=== PATIENT | male | born 1970 | race Caucasian/White ===

== ENCOUNTER 2017-02-04 19:16 | Emergency (ER) | payer MEDICAID ==
--- NOTE | 2017-02-04 19:35 | CPEKG ---
Heart Rate: 108 RR Interval: 556 P-R Interval: 132 QRSD Interval: 100 QT Interval: 364 QTC Interval: 488 P [place]: 70 QRS [place]: 80 T Wave [place]: -27 EKG Severity - BORDERLINE ECG - EKG Impression: SINUS TACHYCARDIA EKG Impression: BORDERLINE INFERIOR Q WAVES EKG Impression: BORDERLINE PROLONGED QT INTERVAL Electronically Signed By: Dandre Levy 04-Feb-2017 19:52:01
[2017-02-04] MEDS ORDERED: LORazepam 2 MG/ML INJ IVP ONE (19:52)
[2017-02-04] MEDS ORDERED: NS 1,000 ML IV ONE ×2 (19:52)
--- NOTE | 2017-02-04 19:55 | EDPHY ---
H & P Stated Complaint: Anxiety from using methamphetamine Source: Patient Exam Limitations: No limitations - Personal History Current Tetanus/Diphtheria Vaccine: Yes - Medical/Surgical History Hx Asthma: No Hx Chronic Respiratory Disease: No Hx Diabetes: No Hx Cardiac Disease: No Hx Renal Disease: No Hx Cirrhosis: No Hx Alcoholism: No Hx HIV/AIDS: No Hx Splenectomy or Spleen Trauma: No Other PMH: PTSD, depression - Social History Smoking Status: Light smoker Time Seen by Provider: 02/04/17 19:24 HPI/ROS: CHIEF COMPLAINT: Anxiety after using methamphetamine HISTORY OF PRESENT ILLNESS: The patient presents to the ED with extreme anxiety and restlessness after using amphetamine on a daily basis for the past 4 days. The patient reports he was released from correction on Sunday. He has been using methamphetamine on a daily basis since that time. The patient had been sober during his prior 9 month incarceration. The patient denies taking additional medications. The patient denies any chest pain or shortness of breath. The patient denies suicidal or homicidal ideation. The patient has no additional acute medical complaints. He specifically denies fever, cough, congestion, headache, numbness, weakness or other acute complaints. REVIEW OF SYSTEMS: A comprehensive 10 point review of systems is otherwise negative aside from elements mentioned in the history of present illness. (Dandre Levy) - Physical Exam Exam: General Appearance: Restless, anxious, cooperative Eyes: Pupils equal and round no pallor or injection ENT, Mouth: Mucous membranes moist Respiratory: There are no retractions, lungs are clear to auscultation Cardiovascular: Tachycardic, rate 120 Gastrointestinal: Abdomen is soft and nontender, no masses, bowel sounds normal Neurological: A&O, normal motor function, normal sensory exam, normal cranial nerves Skin: Warm and dry, no rashes Musculoskeletal: Neck is supple nontender Extremities: symmetrical, full range of motion (Dandre Levy) Constitutional: Initial Vital Signs Temperature (C) 36.9 C 02/04/17 19:19 Heart Rate 132 H 02/04/17 19:19 Respiratory Rate 30 H 02/04/17 19:19 Blood Pressure 168/104 H 02/04/17 19:19 O2 Sat (%) 93 02/04/17 19:19 O2 Delivery Mode Room Air O2 (L/minute) 2 Allergies/Adverse Reactions: No Known Allergies Allergy (Verified 05/15/15 19:14) Home Medications: Medication Instructions Recorded AMITRIPTYLINE HCL [Amitriptyline 200 mg PO HS 02/04/17 100 mg] Escitalopram Oxalate [Lexapro] 10 mg PO 02/04/17 Medical Decision Making - Diagnostics EKG Interpretation: EKG: Complete interpretation has been separately recorded in the [facility] archive. Summary impression: Sinus tachycardia, rate 108, nonspecific ST T wave changes noted (Dandre Levy) ED Course/Re-evaluation: The patient had an IV established. He received 2 mg of IV Ativan. The patient was placed on a awake overnight monitor. He received 2 L of normal saline. Screening laboratory studies including a CBC, serum chemistry in total CPK have been ordered. The patient was noted to have a slightly elevated CPK of 2000. Patient was re-evaluated at 10:00 p.m.. He is becoming more agitated in the ED. The patient was given 10 mg of Zyprexa. The patient has been placed on a emergency department detain or secondary to his methamphetamine intoxication. 10:15pm The patient did have a repeat CPK and is trending down, repeat CPKs 1500 after 2 L of normal saline. The patient will be turned over to Dr. Hernandez at shift change. (Dandre Levy) 11:50 p.m.- I received sign-out of this patient at approximately 10:15 p.m.. The patient was sleeping comfortably until about 11:30p when he became more agitated. He required Versed 2 mg IV and now is calm and resting. 6:30 a.m.- The patient eventually awoke and felt better. He did admit to methamphetamine use. [facility] I have given him Tylenol for some foot pain he is experiencing. He is able to eat and drink without difficulty. Vital signs are stable. (Jada Hernandez) Differential Diagnosis: Differential diagnosis considered includes tachycardia, myocardial infarction, anxiety, sympathomimetic toxicity, renal failure, rhabdomyolysis metabolic abnormality (Dandre Levy) - Data Points Laboratory Results: Laboratory Results 02/04/17 20:00 02/04/17 20:00 02/04/17 02/04/17 02/04/17 23:25 21:40 20:00 WBC RBC Hgb Hct MCV MCH MCHC RDW Plt Count MPV Neut % (Auto) Lymph % (Auto) Preston % (Auto) Eos % (Auto) Baso % (Auto) Nucleat RBC Rel Count Absolute Neuts (auto) Absolute Lymphs (auto) Absolute Monos (auto) Absolute Eos (auto) Absolute Basos (auto) Absolute Nucleated RBC Immature Gran % Immature Gran # Sodium 135 mEq/L mEq/L (134-144) Potassium 3.6 mEq/L mEq/L (3.5-5.2) Chloride 97 mEq/L mEq/L (97-110) Carbon Dioxide 22 mEq/l mEq/l (22-31) Anion Gap 16 mEq/L mEq/L (8-16) BUN 11 mg/dL mg/dL (7-23) Creatinine 0.9 mg/dL mg/dL (0.7-1.3) Estimated GFR > 60 Glucose 82 mg/dL mg/dL (70-100) Calcium 8.9 mg/dL mg/dL (8.5-10.4) Creatine Kinase 1539 IU/L H IU/L 2184 IU/L H IU/L (0-224) (0-224) CK-MB (CK-2) Fraction 12.60 ng/mL H ng/mL 14.70 ng/mL H ng/mL (0-3.19) (0-4.55) CK-MB (CK-2) % 0.8 % % 0.7 % % (0.0-4.0) (0.0-4.0) Creatine Kinase Interp NEGATIVE NEGATIVE (NEGATIVE) (NEGATIVE) Urine Opiates Screen NEGATIVE (NEGATIVE) Urine Barbiturates NEGATIVE (NEGATIVE) Ur Phencyclidine Scrn NEGATIVE (NEGATIVE) Ur Amphetamine Screen NEGATIVE (NEGATIVE) U Benzodiazepines Scrn NEGATIVE (NEGATIVE) Urine Cocaine Screen NEGATIVE (NEGATIVE) U Marijuana (THC) Screen NEGATIVE (NEGATIVE) 02/04/17 20:00 WBC 12.22 10^3/uL H 10^3/uL (3.80-9.50) RBC 4.96 10^6/uL 10^6/uL (4.40-6.38) Hgb 14.2 g/dL g/dL (13.7-17.5) Hct 41.2 % % (40.0-51.0) MCV 83.1 fL fL (81.5-99.8) MCH 28.6 pg pg (27.9-34.1) MCHC 34.5 g/dL g/dL (32.4-36.7) RDW 13.2 % % (11.5-15.2) Plt Count 160 10^3/uL 10^3/uL (150-400) MPV 10.9 fL fL (8.7-11.7) Neut % (Auto) 83.8 % H % (39.3-74.2) Lymph % (Auto) 8.1 % L % (15.0-45.0) Preston % (Auto) 7.4 % % (4.5-13.0) Eos % (Auto) 0.1 % L % (0.6-7.6) Baso % (Auto) 0.2 % L % (0.3-1.7) Nucleat RBC Rel Count 0.0 % % (0.0-0.2) Absolute Neuts (auto) 10.23 10^3/uL H 10^3/uL (1.70-6.50) Absolute Lymphs (auto) 0.99 10^3/uL L 10^3/uL (1.00-3.00) Absolute Monos (auto) 0.91 10^3/uL H 10^3/uL (0.30-0.80) Absolute Eos (auto) 0.01 10^3/uL L 10^3/uL (0.03-0.40) Absolute Basos (auto) 0.03 10^3/uL 10^3/uL (0.02-0.10) Absolute Nucleated RBC 0.00 10^3/uL 10^3/uL (0-0.01) Immature Gran % 0.4 % % (0.0-1.1) Immature Gran # 0.05 10^3/uL 10^3/uL (0.00-0.10) Sodium Potassium Chloride Carbon Dioxide Anion Gap BUN Creatinine Estimated GFR Glucose Calcium Creatine Kinase CK-MB (CK-2) Fraction CK-MB (CK-2) % Creatine Kinase Interp Urine Opiates Screen Urine Barbiturates Ur Phencyclidine Scrn Ur Amphetamine Screen U Benzodiazepines Scrn Urine Cocaine Screen U Marijuana (THC) Screen Medications Given: Discontinued Medications Acetaminophen (Tylenol) 650 mg PO EDNOW ONE Stop: 02/05/17 06:14 Last Admin: 02/05/17 06:19 Dose: 650 mg Sodium Chloride (Ns) 1,000 mls @ 0 mls/hr IV EDNOW ONE; Wide Open PRN Reason: Protocol Stop: 02/04/17 19:53 Last Admin: 02/04/17 20:07 Dose: 1,000 mls Sodium Chloride (Ns) 1,000 mls @ 0 mls/hr IV EDNOW ONE; Wide Open PRN Reason: Protocol Stop: 02/04/17 19:53 Last Admin: 02/04/17 20:08 Dose: 1,000 mls Lorazepam (Ativan Injection) 2 mg IVP EDNOW ONE Stop: 02/04/17 19:53 Last Admin: 02/04/17 20:08 Dose: 2 mg Midazolam HCl (Versed) 2 mg IVP EDNOW ONE Stop: 02/04/17 23:21 Last Admin: 02/04/17 23:21 Dose: 2 mg Olanzapine (Zyprexa Im Injection) 10 mg IM EDNOW ONE Stop: 02/04/17 22:03 Last Admin: 02/04/17 22:11 Dose: 10 mg Departure - Departure Disposition: Home, Routine, Self-Care Clinical Impression: Methamphetamine abuse Rhabdomyolysis Qualifiers: Encounter type: initial encounter Condition: Good Instructions: Methamphetamine Abuse (ED) Additional Instructions: [facility] offers [facility] in [facility] withdrawal. You have been given their contact information and location. They are open 24 hours a day. Referrals: [facility] [Outside] - As per Instructions
[2017-02-04 20:11] LABS: % IMMATURE GRANULYOCYTES 0.4 % (0.0-1.1); ABSOLUTE IMMATURE GRANULOCYTES 0.05 10^3/uL (0.00-0.10); ADD DIFF? NO; ADD MORPH? NO; ADD SCAN? NO; ATYPICAL LYMPHOCYTE FLAG 0 (0-99); FRAGMENT RBC FLAG 0 (0-99); HEMATOCRIT 41.2 % (40.0-51.0); HEMOGLOBIN 14.2 g/dL (13.7-17.5); LEFT SHIFT FLG 0 (0-99); LIPEMIA HEMOLYSIS FLAG 90 (0-99); MEAN CELL HEMOGLOBIN 28.6 pg (27.9-34.1); MEAN CELL HEMOGLOBIN CONCENTR. 34.5 g/dL (32.4-36.7); MEAN CELL VOLUME 83.1 fL (81.5-99.8); MEAN PLATELET VOLUME 10.9 fL (8.7-11.7); PLATELET CLUMPS FLAG 0 (0-99); PLATELET COUNT 160 10^3/uL (150-400); RED BLOOD CELL COUNT 4.96 10^6/uL (4.40-6.38); RED CELL DISTRIBUTION WIDTH 13.2 % (11.5-15.2)
[2017-02-04 20:21] LABS: ANION GAP 16 mEq/L (8-16); CALCIUM 8.9 mg/dL (8.5-10.4); CARBON DIOXIDE 22 mEq/l (22-31); CHLORIDE 97 mEq/L (97-110); CREATININE 0.9 mg/dL (0.7-1.3); GLOMERULAR FILTRATION RATE > 60; GLUCOSE 82 mg/dL (70-100); POTASSIUM 3.6 mEq/L (3.5-5.2); SODIUM 135 mEq/L (134-144)
[2017-02-04 20:46] LABS: CK-MB INTERPRETATION NEGATIVE (NEGATIVE)
[2017-02-04] MEDS ORDERED: OLANZapine 10 MG/2 ML VIAL IM ONE ×2 (21:57→22:02)
[2017-02-04 22:16] LABS: CK-MB INTERPRETATION NEGATIVE (NEGATIVE)
[2017-02-04] MEDS ORDERED: MIDAZOLAM 2 MG/2 ML VIAL ONE (23:18)
[2017-02-04] MEDS ORDERED: MIDAZOLAM 2 MG/2 ML VIAL IVP ONE (23:20)
[2017-02-05 04:19] VITALS: PULSE 97
[2017-02-05 06:09] VITALS: BP 141/82; RESP 18; TEMP 98.6; O2SAT 94
[2017-02-05] MEDS ORDERED: ACETAMINOPHEN 325 MG TAB PO ONE (06:13)
== END 2017-02-05 06:32 | disposition home or self-care (01) ==
DX: F15.10 Other stimulant abuse, uncomplicated (principal); M62.82 Rhabdomyolysis; F17.200 Nicotine dependence, unspecified, uncomplicated; E86.9 Volume depletion, unspecified
CPT/HCPCS: 80305; 96374; J2060; J2250

== ENCOUNTER 2018-04-13 14:09 | Emergency (ER) | payer MEDICAID ==
[2018-04-13 14:18] VITALS: BP 98/90
== END 2018-04-13 14:30 | disposition left against medical advice (07) ==
DX: S09.93XA Unspecified injury of face, initial encounter (principal); Y09 Assault by unspecified means; Z53.21 Procedure and treatment not carried out due to patient leaving prior to being seen by health care provider

== ENCOUNTER 2018-04-13 19:20 | Emergency (ER) | payer MEDICAID ==
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
[2018-04-13] MEDS ORDERED: IBUPROFEN 800 MG TAB PO ONE (21:07)
[2018-04-13 21:28] VITALS: BP 141/65
== END 2018-04-13 21:26 ==
DX: S09.90XA Unspecified injury of head, initial encounter (principal); S29.9XXA Unspecified injury of thorax, initial encounter; Z59.0 Homelessness; Y04.8XXA Assault by other bodily force, initial encounter